=== PATIENT | male | born 1995 | race Caucasian/White ===

== ENCOUNTER → 2023-10-29 | Outpatient (REF) | payer BC | LOC: M LABSMT 14:59 | PROVIDERS: ATTEND Urology | DX: Z30.2 Encounter for sterilization (principal) ==

== ENCOUNTER → 2023-10-29 | Outpatient (REF) | payer BC | LOC: M SMT 13:21 | PROVIDERS: ATTEND Urology | DX: Z30.2 Encounter for sterilization (principal) ==

== ENCOUNTER → 2023-12-29 | Outpatient (REF) | payer BC ==
[2023-12-30 08:07] LABS: SEMEN APPEARANCE OPAQUE (OPAQUE); SEMEN VISCOSITY LIQUID (LIQUID); SEMEN VOLUME 1.5 ml (2.0-5.0); SEMEN pH 7.5 (7.0-8.0); WBC CONCENTRATION >1 M/ml (<=1 M/ml)
== END ==
LOC: M LAB REF 13:06 → M SMT 13:06
PROVIDERS: ATTEND Urology
DX: Z30.2 Encounter for sterilization (principal)